=== PATIENT | female | born 1980 | race Caucasian/White ===

== ENCOUNTER 2016-05-10 12:09 | Emergency (ER) | payer BC ==
[2016-05-10 12:46] VITALS: BP 112/72
--- NOTE | 2016-05-10 12:59 | UC ---
Skin Complaint HPI - HPI Summary HPI Summary: [facility] - History of Current Complaint Chief Complaint: UCLowerExtremity Time Seen by Provider: 05/10/16 12:44 Stated Complaint: PAINFUL TOE Hx Obtained From: Patient Hx Last Menstrual Period: 05/01/16 ?: No Onset/Duration: Sudden Onset, Lasting Days Skin Exposure Onset/Duration: Days Ago Timing: Constant Onset Severity: Mild Current Severity: None Location: Discrete - right 4th toe Aggravating: Nothing Alleviating: Nothing Associated Signs & Symptoms: Positive: Negative - Allergy/Home Medications Allergies/Adverse Reactions: Allergies Allergy/AdvReac Type Severity Reaction Status Date / Time No Known Allergies Allergy Verified 02/05/13 08:35 Home Medications: Home Medications Cholecalciferol [Vitamin D] 1,000 unit PO 05/10/16 [History] Review of Systems Constitutional: Negative Skin: Negative Eyes: Negative ENT: Negative Respiratory: Negative Cardiovascular: Negative Gastrointestinal: Negative Genitourinary: Negative Motor: Negative Neurovascular: Negative Musculoskeletal: Other: - irritation in toe sometimes Neurological: Negative Psychological: Negative All Other Systems Reviewed And Are Negative: Yes PMH/Surg Hx/FS Hx/Imm Hx Previously Healthy: Yes Endocrine History Of: Denies: Diabetes, Thyroid Disease Cardiovascular History Of: Denies: Cardiac Disorders, Hypertension, Pacemaker/ICD Respiratory History Of: Denies: COPD, Asthma GI/ History Of: Denies: Ulcer - Surgical History Surgical History: Yes Surgery Procedure, Year, and Place: WISDOM TEETH REMOVAL - Family History Known Family History: Negative: Cardiac Disease, Hypertension - Social History Alcohol Use: None Substance Use Type: None Smoking Status (MU): Never Smoked Tobacco Have You Smoked in the Last Year: No - Immunization History Most Recent Influenza Vaccination: 11/25/14 Most Recent Tetanus Shot: 11/21/14 Most Recent Pneumonia Vaccination: na Physical Exam Triage Information Reviewed: Yes Appearance: Well-Nourished, Ill-Appearing, Pain Distress Vital Signs: Initial Vital Signs Temp 98.5 F 05/10/16 12:41 Pulse 85 05/10/16 12:41 Resp 18 05/10/16 12:41 BP 112/72 05/10/16 12:41 Pulse Ox 98 05/10/16 12:41 Vital Signs Reviewed: Yes Eye Exam: Normal Eyes: Positive: Conjunctiva Clear ENT Exam: Normal ENT: Positive: Normal ENT inspection, Hearing grossly normal, Pharynx normal, TMs normal Dental Exam: Normal Neck exam: Normal Neck: Positive: Supple, Nontender, No Lymphadenopathy Respiratory Exam: Normal Respiratory: Positive: Chest non-tender, Lungs clear, Normal breath sounds Cardiovascular Exam: Normal Cardiovascular: Positive: RRR, No Murmur, Pulses Normal Abdominal Exam: Normal Abdomen Description: Positive: Nontender, No Organomegaly, Soft Bowel Sounds: Positive: Present Musculoskeletal Exam: Normal Musculoskeletal: Positive: Strength Intact, ROM Intact, No Edema Neurological Exam: Normal Neurological: Positive: Alert, Muscle Tone Normal Psychological Exam: Normal Skin: Positive: Other - no redness or FB noted, skin is intack, no visible abnormality, patient denies pain at this time. Course/Dx - Course Course Of Treatment: hx obtained, exam performed, educated on foot soaks - Differential Diagnoses - Skin Complaint Differential Diagnoses: Abscess, Cellulitis, Contact Dermatitis, Urticaria - Diagnoses Provider Diagnoses: toe pain Discharge - Discharge Plan Condition: Stable Disposition: HOME Patient Education Materials: Soft Tissue Foreign Body (ED) Referrals: Dora Martin MD [Primary Care Provider] - Additional Instructions: COntinue to soak your foot in epsom salts 2-3 times a day. FOllow up with any increase in redness, swelling or fever.
== END 2016-05-10 12:59 | disposition home or self-care (01) ==
LOC: UCEAST 12:09
DX: M79.674 Pain in right toe(s) (principal)
CPT/HCPCS: 99211; G0463

== ENCOUNTER 2017-02-08 10:34 | Emergency (ER) | payer BC ==
[2017-02-08 10:59] VITALS: BP 99/67
--- NOTE | 2017-02-08 11:50 | UC ---
Florencia Ahmadi Nilda, scribed for Janie Briceno MD on 02/08/17 at 1133 . Throat Pain/Nasal Mati HPI - HPI Summary HPI Summary: This patient is a 36 year old F presenting to [facility] with a chief complaint of constant sore throat (burning) since yesterday. The patient rates the pain 5/10 in severity. Symptoms aggravated by nothing. Symptoms alleviated by Tylenol Cold /Flu last taken this morning. Patient reports post nasal drip symptoms, mild nausea, cough (2 days ago), rhinorrhea (1 week ago, resolved), and chills. Patient denies ear pain, rash, and fever. Pt states she's been drinking and eating well. Flu vaccine UTD. NKDA. Pt is on BCPs but is on no other medications. No smoke exposure, but occasional alcohol. Pt states 2 weeks ago she felt similar symptoms and was treated with abx (Amoxicillin, BID) with no relief. She states she did not change her toothbrush following her abx treatment. Recent sick contact with child with similar symptoms. Patients medication's reviewed. - History of Current Complaint Chief Complaint: UCRespiratory Stated Complaint: SORE THROAT Hx Obtained From: Patient Hx Last Menstrual Period: 05/01/16 Onset/Duration: Sudden Onset, Lasting Days - yesterday, Still Present Severity: Moderate Pain Intensity: 5 Pain Scale Used: 0-10 Numeric Cough: Nonproductive Associated Signs & Symptoms: Positive: Other - sore throat, post nasal drip symptoms, mild nausea, cough (2 days ago), rhinorrhea (1 week ago, resolved), and chills. Patient denies ear pain, rash, and fever. - Allergies/Home Medications Allergies/Adverse Reactions: Allergies Allergy/AdvReac Type Severity Reaction Status Date / Time No Known Allergies Allergy Verified 02/08/17 10:56 Home Medications: Home Medications Oral Control 02/08/17 [History] Eypftucktenwl-Ab-CL W/ APAP [Tylenol Cold & Flu Severe 1-88-291-325 mg] [History] PMH/Surg Hx/FS Hx/Imm Hx Previously Healthy: Yes - Surgical History Surgical History: Yes Surgery Procedure, Year, and Place: WISDOM TEETH REMOVAL - Family History Known Family History: Negative: Cardiac Disease, Hypertension - Social History Alcohol Use: None Substance Use Type: None Smoking Status (MU): Never Smoked Tobacco Have You Smoked in the Last Year: No - Immunization History Most Recent Influenza Vaccination: 11/25/14 Most Recent Tetanus Shot: 11/21/14 Most Recent Pneumonia Vaccination: na Review of Systems Constitutional: Chills, Other - negative fever Skin: Other - negative rash ENT: Sore Throat, Nasal Discharge - last week, resolved, Other - post nasal drip symptoms; negative ear pain Respiratory: Cough Gastrointestinal: Nausea - mild All Other Systems Reviewed And Are Negative: Yes Physical Exam Triage Information Reviewed: Yes Appearance: Well-Appearing, No Pain Distress, Well-Nourished Vital Signs: Initial Vital Signs Temp 98.2 F 02/08/17 10:57 Pulse 78 02/08/17 10:57 Resp 16 02/08/17 10:57 BP 99/67 02/08/17 10:57 Pulse Ox 100 02/08/17 10:57 Vital Signs Reviewed: Yes Eye Exam: Normal Eyes: Positive: Conjunctiva Clear ENT Exam: Normal ENT: Positive: Normal ENT inspection, Hearing grossly normal, Nasal congestion, Other - scan fluuid b/l TM + PND no erythema, exudate uvula midline Dental Exam: Normal Neck exam: Normal Neck: Positive: Supple, Nontender, No Lymphadenopathy Respiratory Exam: Normal Respiratory: Positive: Chest non-tender, Lungs clear, Normal breath sounds, No respiratory distress, No accessory muscle use Cardiovascular Exam: Normal Cardiovascular: Positive: RRR, No Murmur, Pulses Normal Abdominal Exam: Normal Abdomen Description: Positive: Nontender, No Organomegaly Bowel Sounds: Positive: Present Musculoskeletal Exam: Normal Neurological Exam: Normal Neurological: Positive: Alert Psychological Exam: Normal Skin Exam: Normal Throat Pain/Nasal Course/Dx - Course Course Of Treatment: pt with sore throat ad PND. Pt well appearing with stable VS. Pt with + PND and mild ear fluid on exam. Will rx nasal spray. hydrate. secretion precautions. strep neg - Differential Dx/Diagnosis Provider Diagnoses: URI Discharge - Discharge Plan Condition: Stable Disposition: HOME Prescriptions: Fluticasone NASAL SPRAY 50MCG* [Flonase NASAL SPRAY 50MCG*] 2 spray BOTH NARES DAILY #1 btl Patient Education Materials: Upper Respiratory Infection (ED) Forms: *Work Release Referrals: No Primary Care Phys,NOPCP [Primary Care Provider] - Additional Instructions: - Stay well hydrated. Drink plenty of non-alcoholic,non-caffinated beverages - use nasal spray once daily as prescribed - okay to take over the counter decongestant or cough/cold medications - These infections are spread by oral secretions - do not share eating or drinking utensils until you symptoms are resolved. Clean items that may get your secretions such as cell phones, ipads, computer mouse, television remote. Once you start to feel better, change your pillowcase and your toothbrush - Contact your doctor or return with questions or concerns The documentation as recorded by the Florencia contreras Nilda accurately reflects the service I personally performed and the decisions made by me, Janie Briceno MD.
== END 2017-02-08 12:01 | disposition home or self-care (01) ==
LOC: UCEAST 10:34
DX: J06.9 Acute upper respiratory infection, unspecified (principal)
CPT/HCPCS: 87651; 99212; G0463

== ENCOUNTER 2017-09-14 16:04 | Emergency (ER) | payer BC ==
[2017-09-14 16:11] VITALS: BP 118/79
--- NOTE | 2017-09-14 16:28 | ED ---
Respiratory - HPI Summary HPI Summary: 37-year-old female presents with productive cough for the past week. She states that she developed a sore throat yesterday. She denies any fevers. Denies any shortness breath or chest pain. She denies any headache. She denies any nausea vomiting. Her daughter is sick with a runny nose. She denies any sinus congestion. She has been taking nyquil with minimal relief. She is not a smoker. - History of Current Complaint Chief Complaint: UCRespiratory Stated Complaint: SORE THROAT Time Seen by Provider: 09/14/17 16:18 Pain Intensity: 6 - Allergy/Home Medications Allergies/Adverse Reactions: Allergies Allergy/AdvReac Type Severity Reaction Status Date / Time No Known Allergies Allergy Verified 09/14/17 16:11 PMH/Surg Hx/FS Hx/Imm Hx Endocrine/Hematology History: Denies: Hx Diabetes, Hx Thyroid Disease Cardiovascular History: Denies: Hx Hypertension, Hx Pacemaker/ICD Respiratory History: Denies: Hx Asthma, Hx Chronic Obstructive Pulmonary Disease (COPD) GI History: Denies: Hx Ulcer Musculoskeletal History: Denies: Hx Scoliosis Sensory History: Denies: Hx Hearing Aid Neurological History: Reports: Hx Headaches Psychiatric History: Denies: Hx Panic Disorder - Surgical History Surgery Procedure, Year, and Place: WISDOM TEETH REMOVAL Infectious Disease History: No Infectious Disease History: Denies: Hx Hepatitis, Hx Human Immunodeficiency Virus (HIV), History Other Infectious Disease, Traveled Outside the in Last 30 Days - Family History Known Family History: Negative: Cardiac Disease, Hypertension - Social History Alcohol Use: None Substance Use Type: Reports: None Smoking Status (MU): Never Smoked Tobacco Have You Smoked in the Last Year: No Review of Systems Negative: Fever Positive: Sore Throat Negative: Chest Pain Positive: Cough. Negative: Shortness Of Breath All Other Systems Reviewed And Are Negative: Yes Physical Exam Triage Information Reviewed: Yes Vital Signs On Initial Exam: Initial Vitals Temp Pulse Resp BP Pulse Ox 98.9 F 74 16 118/79 100 09/14/17 16:07 09/14/17 16:07 09/14/17 16:07 09/14/17 16:07 09/14/17 16:07 Vital Signs Reviewed: Yes Appearance: Positive: Well-Appearing Skin: Positive: Warm, Dry Head/Face: Positive: Normal Head/Face Inspection Eyes: Positive: Normal, EOMI, MELISSA, Conjunctiva Clear ENT: Positive: Normal ENT inspection, Pharyngeal erythema, TMs normal, Uvula midline, Other - soft palate symmetric. Negative: Tonsillar swelling, Tonsillar exudate, Trismus, Muffled voice Neck: Positive: Supple, Nontender, No Lymphadenopathy Respiratory/Lung Sounds: Positive: Clear to Auscultation, Breath Sounds Present Cardiovascular: Positive: Normal, RRR Musculoskeletal: Positive: Normal Neurological: Positive: Normal Psychiatric: Positive: Normal Diagnostics - Vital Signs Vital Signs Temp Pulse Resp BP Pulse Ox 09/14/17 16:07 98.9 F 74 16 118/79 100 - Laboratory Lab Statement: Any lab studies that have been ordered have been reviewed, and results considered in the medical decision making process. Disposition - Course Course Of Treatment: 37-year-old female presents with productive cough for the past week. She states that she developed a sore throat yesterday. She denies any fevers. Denies any shortness breath or chest pain. She denies any headache. She denies any nausea vomiting. Her daughter is sick with a runny nose. She denies any sinus congestion. She has been taking nyquil with minimal relief. She is not a smoker. on exam pharynx erythematous. Uvula midline. Soft palate symmetric. Tonsils no edema. Centor rules does not need any strep swab. Lungs clear to auscultation. Negative egophony. discussed options with patient and we'll place on Tessalon. Patient understands agrees with plan. - Differential Dx - Cardiopulmonary Differential Diagnoses - Cardiopulmonary: Bronchitis, Lower Resp Infection, Other - pharyngitis - Diagnoses Provider Diagnoses: Upper respiratory infection Discharge - Sign-Out/Discharge Documenting (check all that apply): Patient Departure - Discharge Plan Condition: Good Disposition: HOME Prescriptions: Benzonatate CAP* [Tessalon 100 MG CAP*] 100 mg PO TID PRN #21 cap PRN Reason: Cough Patient Education Materials: Upper Respiratory Infection (ED) Referrals: Dora Martin MD [Primary Care Provider] - Additional Instructions: Use Tessalon three times a day for cough Use humidifier or place warm bowls of water around the room for cough Take Tylenol or ibuprofen every 6 hours as needed for pain Follow up with primary care physician in 5 days Return to ED if develop any new or worsening symptoms - Billing Disposition and Condition Condition: GOOD Disposition: Home
== END 2017-09-14 16:30 | disposition home or self-care (01) ==
LOC: UCEAST 16:04
DX: J06.9 Acute upper respiratory infection, unspecified (principal)
CPT/HCPCS: 99212; G0463

== ENCOUNTER 2018-05-03 07:48 | Emergency (ER) | payer BC ==
[2018-05-03 08:00] VITALS: BP 112/72
--- NOTE | 2018-05-03 08:02 | UC ---
Throat Pain/Nasal Mati HPI - HPI Summary HPI Summary: Patient Chief Complaint: Five-day history of moderate left sinus discomfort. Some discomfort on the right. Postnasal drip. MD note: vital signs stable. Vital signs beyond normal range reviewed. Nurses Note Reviewed. Visit History Reviewed. Noncontributory to present complaint. Patient does have a history of headaches and numbness. Medications & Allergies Reviewed. Patient has no known allergies. She is not on any antihypertensive medication. - History of Current Complaint Stated Complaint: SINUS Time Seen by Provider: 05/03/18 07:59 Hx Obtained From: Patient Hx Last Menstrual Period: 3 weeks ago Pain Intensity: 7 - Allergies/Home Medications Allergies/Adverse Reactions: Allergies Allergy/AdvReac Type Severity Reaction Status Date / Time No Known Allergies Allergy Verified 05/03/18 08:00 Home Medications: Home Medications Ibuprofen [Advil] 200 mg PO ONCE PRN 05/03/18 [History Confirmed 05/03/18] L.acidoph,Paracasei, B.lactis [Probiotic] 1 each PO ONCE PRN 05/03/18 [History Confirmed 05/03/18] Oxymetazoline 0.05% NASAL SPR* [Afrin 0.05% NASAL SPRAY*] 1 spray NASAL Q12H PRN 05/03/18 [History Confirmed 05/03/18] Phenylephrine/Dm/Acetaminop/GG [Tylenol Cold-Flu Severe Caplet] 1 each PO ONCE PRN 05/03/18 [History Confirmed 05/03/18] Trinessa Control 1 tab PO DAILY 05/03/18 [History Confirmed 05/03/18] PMH/Surg Hx/FS Hx/Imm Hx - Additional Past Medical History Additional PMH: PMH reviewed. PATIENT DENIES significant past medical history. Family History: Positive history of: -CANCER -Denies hypertension, heart disease, stroke, diabetes. SOCIAL HISTORY: Employment: [employer] Family Environment: Lives with family Habits: Nonsmoker Previously Healthy: Yes - Surgical History Surgical History: Yes Surgery Procedure, Year, and Place: WISDOM TEETH REMOVAL - Family History Known Family History: Negative: Cardiac Disease, Hypertension - Social History Alcohol Use: None Substance Use Type: None Smoking Status (MU): Never Smoked Tobacco Have You Smoked in the Last Year: No - Immunization History Most Recent Influenza Vaccination: 11/25/14 Most Recent Tetanus Shot: 11/21/14 Most Recent Pneumonia Vaccination: na Review of Systems All Other Systems Reviewed And Are Negative: Yes Constitutional: Negative: Fever ENT: Positive: Sinus Congestion, Sinus Pain/Tenderness - On the left side. Respiratory: Positive: Negative Cardiovascular: Positive: Negative Gastrointestinal: Positive: Negative Is Patient Immunocompromised?: No - Comments Additional Review of Systems Comments: A 12 point review of systems was completed and was significantly positive for: Left Sinus pain . The remainder of the review was negative except as stated above in the ROS or HPI. Physical Exam - Summary Physical Exam Summary: Appearance: The patient is well-appearing, is in no pain or distress, and is well-nourished. Eyes: Conjunctiva are clear. Pupils are equal and reactive to light and accommodation. Extra ocular muscle movement is intact. ENT: The hearing is grossly normal, the pharynx is normal, and the TMs are normal. There is no muffled or hoarse voice. No stridor. Neck: The neck is supple and there is no lymphadenopathy. There is mild tenderness to palpation over the left sinus. There is no significant nasal drainage. Respiratory: The chest is nontender to palpation and without crepitus. The lungs are clear, there are normal breath sounds, and there is no respiratory distress. No wheezes, rales or rhonchi. Cardiovascular: Heart sounds reveal a regular rate and rhythm. There are no clicks, rubs or murmurs. There are no carotid bruits or thrills. Circulation is grossly intact. Abdomen: The abdomen is soft and nontender. There is no organomegaly. Bowel sounds are present and within normal limits. No point tenderness at McBurneys point. Musculoskeletal: Strength is intact. The patient moves all extremities. Neurological: The patient is alert. Motor and sensory are examination grossly intact. Speech is normal. Psychological: The patient displays age appropriate behavior Skin: Negative for rashes. Triage Information Reviewed: Yes Vital Signs: Initial Vital Signs Temp 98.3 F 05/03/18 07:55 Pulse 91 05/03/18 07:55 Resp 18 05/03/18 07:55 BP 112/72 05/03/18 07:55 Pulse Ox 99 05/03/18 07:55 Throat Pain/Nasal Course/Dx - Course Course Of Treatment: Five-day history of moderate left sinus discomfort. Some discomfort on the right. Postnasal drip. Physical exam shows mild tenderness to palpation over the left sinus. We discussed the probability that this is viral. We decided on a course of treatment that would involve me giving amoxicillin and the patient waiting for 2 days and taking the medication if the pain increased or if she developed a temperature. The patient will use warm moist soaks to the area and various honr-nko-ofbrand medications. She will follow-up if she needs to take the antibiotic or if she notes increasing pain or temperature. My diagnosis is sinus congestion, possible sinusitis on the left. I've written her a prescription for 5 days of amoxicillin. MEDICATIONS REVIEWED: Medications have been included in the original chart and reviewed. HYPERTENSION STATUS REVIEWED. - Differential Dx/Diagnosis Differential Diagnosis/HQI/PQRI: Sinusitis, URI Provider Diagnosis: Sinusitis Discharge - Sign-Out/Discharge Documenting (check all that apply): Patient Departure All imaging exams completed and their final reports reviewed: No Studies - Discharge Plan Condition: Stable Disposition: HOME Prescriptions: Amoxicillin PO (*) [Amoxicillin 875 MG (*)] 875 mg PO BID #10 tab MDD 2 Patient Education Materials: Analgesic/Decongestant (By mouth), Guaifenesin/ Phenylephrine (By mouth), Sinusitis (ED) Referrals: Dora Martin MD [Primary Care Provider] - Additional Instructions: WE DISCUSSED: PLEASE SEEK CARE AT THE EMERGENCY DEPARTMENT IF SYMPTOMS WORSEN OR IF NEW SYMPTOMS DEVELOP. FOLLOW UP WITH YOUR PRIMARY CARE PHYSICIAN IF CONDITION CONTINUES BEYOND 3 DAYS WITHOUT IMPROVEMENT. We are open from 7 a.m. to 10 p.m. Call us with any questions or concerns. YOUR DIAGNOSIS IS: SINUS CONGESTION, POSSIBLE INFECTION CAUSED BY VIRUS; MAYBE BY BACTERIA YOUR PRESCRIPTION RECOMMENDATION IS: AMOXICILLIN, TWICE A DAY FOR FIVE DAYS, IF PAIN CONTINUES FOR 2 MORE DAYS, OR IF YOU GET INCREASED PAIN OR TEMPERATURE. OTHER INSTRUCTIONS: SEE ATTACHED INSTRUCTIONS. IF YOU NEED TO TAKE THE ANTIBIOTIC, RECHECK WITH US OR YOUR DOCTOR. Any illness causing cough, congestion, sore throat or sinus discomfort can be helped by doing the following: STAND UNDER SHOWER STREAM TO LOOSEN SECRETIONS. STAY AWAY FROM ANY SMOKE OR IRRITANTS. WHAT ELSE CAN HELP RELIEVE YOUR SYMPTOMS: GENERAL TYPES OF MEDICINE THAT MAY HELP DECONGESTANTS: helps relieve stuffiness and clears sinuses. Pseudoephedrine ( Sudafed or generic) is effective but you need to ask the pharmacist for it because it may be kept behind the counter. ANTIHISTAMINES: are NOT helpful in many colds and flus because they can worsen sore throat, dry eyes and mouth and cause drowsiness. Examples are diphenhydramine, doxylamine and chlorpheniramine. They can help dry you out if you are having profuse, clear drainage from the nose. EXPECTORANTS: helps thin mucous in the nose and chest, making it easier to clear the fluid out. Expectorants are in most combination cough/cold remedies and should be taken with plenty of water. Guaifenesin is the most common expectorant and it comes in pill or liquid form. Mucinex is an extended release form of guaifenesin. COUGH SUPPRESANT: reduces the body's cough reflex. Dextromethorphan is in over the counter products. Rarely, narcotics such as codeine or hydrocodone are used to suppress cough. SPECIFIC MEDICATIONS: Some of these may come in combination. In general, they all contain the same or similar active ingredients. The most important goal is to liquefy all the phlegm and get it out of your head and chest: The following medicines (you can buy them without prescription) may help: To help with cough: DEXTROMETHORPHAN (Vicks, Robitussin, Nyquil and other brands) To help break up phlegm: GUAIFENESIN (Mucinex, Robitussin, other brands) To help clear congestion: PSEUDOEPHEDRINE (Sudafed, Dimetapp, other brands) TRY TO CLEAR NOSE: AFRIN NASAL SPRAY: 2-3 SPRAYS PER NOSTRIL, TWICE A DAY FOR TWO DAYS ONLY. USEFUL WAYS TO FEEL BETTER WITHOUT MEDICATIONS: STAND UNDER SHOWER STREAM TO LOOSEN SECRETIONS. USE A VAPORIZOR. STAY AWAY FROM ANY SMOKE OR IRRITANTS. USE SALINE NASAL SPRAY TO KEEP FLOW OF MUCOUS FROM NOSTRILS AND SINUSES. CONSIDER USING NETI POT TO HELP WITH ALLERGIES AND CONGESTION IN THE NOSE. USE THIS THREE TIMES A WEEK. YOU CAN GET THIS AT [employer] IN [place] OR VARIOUS DRUGSTORES. DRINK LOTS OF WARM FLUIDS USEFUL HOME REMEDIES: WARM WATER GARGLES, WITH TSP OF SALT PER 8 OUNCES OF WATER, GARGLE FOR A FEW SECONDS AND SPIT OUT; GARGLE AND SPIT OUT; EVERY THREE HOURS. AND/OR: WARM WATER OR TEA, HONEY AND LEMON; 2-3 CUPS A DAY. FOR SORE THROAT: KEEP THROAT MOIST WITH LOZENGES; TEA AND HONEY. USE WARM WATER GARGLES 3-4 TIMES A DAY. FOLLOW UP: RE-CHECK IN 1O DAYS, NEEDED, IF YOU ARE NOT IMPROVING. RETURN HERE OR SEE YOUR PHYSICIAN. RE-CHECK SOONER IF INCREASED PAIN OR TEMPERATURE. - Billing Disposition and Condition Condition: STABLE Disposition: Home
== END 2018-05-03 08:30 | disposition home or self-care (01) ==
LOC: UCEAST 07:48
DX: J32.9 Chronic sinusitis, unspecified (principal)
CPT/HCPCS: 99212; G0463

== ENCOUNTER 2019-01-01 17:01 | Emergency (ER) | payer BC ==
--- NOTE | 2019-01-01 17:11 | UC ---
Throat Pain/Nasal Mati HPI - HPI Summary HPI Summary: 38 yo female presents with sore throat. She tells me that for the last week she has had a sore throat. Over the last 3 days has noticed swollen lymph nodes. She is eating, drinking, and tolerating po well. Denies fever, chills, sinus symptoms, cough, rash. - History of Current Complaint Stated Complaint: SORE THROAT Time Seen by Provider: 01/01/19 17:10 Hx Obtained From: Patient Hx Last Menstrual Period: 3 weeks ago Onset/Duration: Gradual Onset Severity: Mild Pain Intensity: 3 Pain Scale Used: 0-10 Numeric - Allergies/Home Medications Allergies/Adverse Reactions: Allergies Allergy/AdvReac Type Severity Reaction Status Date / Time No Known Allergies Allergy Verified 05/03/18 08:00 PMH/Surg Hx/FS Hx/Imm Hx - Additional Past Medical History Additional PMH: None - Surgical History Surgical History: Yes Surgery Procedure, Year, and Place: WISDOM TEETH REMOVAL - Family History Known Family History: Negative: Cardiac Disease, Hypertension - Social History Occupation: Employed Full-time Lives: With Family Alcohol Use: None Substance Use Type: None Smoking Status (MU): Never Smoked Tobacco Have You Smoked in the Last Year: No - Immunization History Most Recent Influenza Vaccination: 11/25/14 Most Recent Tetanus Shot: 11/21/14 Most Recent Pneumonia Vaccination: na Review of Systems All Other Systems Reviewed And Are Negative: No Constitutional: Positive: Negative Skin: Positive: Negative Eyes: Positive: Negative ENT: Positive: Sore Throat Respiratory: Positive: Negative Cardiovascular: Positive: Negative Gastrointestinal: Positive: Negative Neurological: Positive: Negative Psychological: Positive: Negative Physical Exam - Summary Physical Exam Summary: GENERAL: NAD. WDWN. No pain distress. SKIN: No rashes, sores, lesions, or open wounds. HEENT: Head: AT/NC Eyes: EOM intact. Conjunctiva clear without inflammation or discharge. Ears: Hearing grossly normal. TMs intact, no bulging, erythema, or edema. Nose: Nasal mucosa pink and moist. NTTP maxillary and frontal sinus. Throat: Posterior oropharynx without exudates, erythema, or tonsillar enlargement. Uvula midline. NECK: Supple. Anterior cervical shotty LAD. NTTP CHEST: CTAB. No accessory muscle use. Breathing comfortably and in no distress. CV: RRR. Pulses intact. Cap refill <2seconds NEURO: Alert. PSYCH: Age appropriate behavior. Triage Information Reviewed: Yes Vital Signs: Vital Signs: Temp Pulse Resp BP Pulse Ox 97.8 F 89 16 115/73 100 01/01/19 17:17 01/01/19 17:17 01/01/19 17:17 01/01/19 17:17 01/01/19 17:17 Laboratory Tests 01/01/19 17:33 Group A Strep Rapid Positive A Vital Signs Reviewed: Yes Throat Pain/Nasal Course/Dx - Course Course Of Treatment: POC strep positive rx for amoxicillin - Differential Dx/Diagnosis Provider Diagnosis: Strep throat Discharge ED - Sign-Out/Discharge Documenting (check all that apply): Patient Departure All imaging exams completed and their final reports reviewed: No Studies - Discharge Plan Condition: Stable Disposition: HOME Prescriptions: Amoxicillin PO (*) [Amoxicillin 500 MG CAP*] 500 mg PO Q12H #20 cap Patient Education Materials: Strep Throat (ED) Forms: *Work Release Referrals: Dora Martin MD [Primary Care Provider] - Additional Instructions: If you develop a fever, shortness of breath, chest pain, new or worsening symptoms - please call your PCP or go to the ED immediately. - Billing Disposition and Condition Condition: STABLE Disposition: Home
[2019-01-01 17:23] VITALS: BP 115/73
[2019-01-01] MEDS ORDERED: Amoxicillin PO (*) 500 MG CAP PO ONE (17:43)
== END 2019-01-01 18:00 | disposition home or self-care (01) ==
LOC: UCEAST 17:01
DX: J02.0 Streptococcal pharyngitis (principal)
CPT/HCPCS: 87651; 99212; A9270-GY; G0463

== ENCOUNTER 2021-06-04 01:20 | Inpatient (IN) ==
[2021-06-04] MEDS ORDERED: Buffered Lidocaine 1% SYRIN 1 ml INTRADERM ONE (02:07)
[2021-06-04] MEDS ORDERED: Lactated Ringers 1000 ml BAG 1,000 ML IV ONE (02:07)
[2021-06-04] MEDS ORDERED: Penicillin G Potassium IV 5,000,000 UNITS in NS 0.9% 100 ml BAG 100 ML IVPB ONE (02:30)
[2021-06-04 02:34] LABS: ABS Monocytes 0.6 10^3/ul (0-0.8); ABS Neutrophils 5.5 10^3/ul (1.5-7.7); Eosinophil % 0.4 %; Hematocrit 36 % (35-47); Hemoglobin 12.5 g/dL (12.0-16.0); Lymphocyte % 24.4 %; Mean Corpuscular HGB Conc 35 g/dL (31-36); Mean Corpuscular Hemoglobin 33 pg (27-31); Mean Corpuscular Volume 94 fL (80-97); Mean Platelet Volume 8.6 fL (7.4-10.4); Platelet Count 261 10^3/uL (150-450); Red Blood Count 3.84 10^6 /uL (3.70-4.87); Red Cell Distribution Width 13 % (10-15); White Blood Count 8.1 10^3/uL (3.5-10.8)
[2021-06-04 02:55] LABS: Urine Benzodiazepine Screen None Detected (None Detect); Urine Cannabinoids Screen None Detected (None Detect); Urine Opiates Screen None Detected (None Detect)
[2021-06-04] MEDS ORDERED: Lactated Ringers 1000 ml BAG 1,000 ML IV SCH ×2 (03:00→12:00)
[2021-06-04] MEDS: Penicillin G Potassium IV 3,000,000 UNITS in NS 0.9% 100 ml BAG 100 ML IVPB SCH ×2 (06:30→12:10)
[2021-06-04] MEDS ORDERED: Oxytocin in LR 20 UNITS/1,000 ML BAG IVPB ONE (09:18)
[2021-06-04] MEDS ORDERED: Oxytocin in LR 20 UNITS/1,000 ML BAG IVPB SCH ×2 (10:00→12:00)
[2021-06-04] MEDS: Witch Hazel PAD JAR TOPICAL PRN ×2 (12:37→20:24)
[2021-06-04] MEDS ORDERED: Lidocaine 1% VIAL 10 MG/ML VIAL ONE (15:57)
[2021-06-04] MEDS: Dibucaine 1% OINT 28.35 GM TUBE PR PRN (20:24)
[2021-06-05 07:27] LABS: ABS Lymphocytes 1.6 10^3/ul (1.0-4.8); ABS Monocytes 0.6 10^3/ul (0-0.8); ABS Neutrophils 6.8 10^3/ul (1.5-7.7); Eosinophil % 0.2 %; Hematocrit 31 % (35-47); Hemoglobin 10.9 g/dL (12.0-16.0); Lymphocyte % 18.1 %; Mean Corpuscular HGB Conc 35 g/dL (31-36); Mean Corpuscular Hemoglobin 33 pg (27-31); Mean Corpuscular Volume 94 fL (80-97); Mean Platelet Volume 8.1 fL (7.4-10.4); Platelet Count 220 10^3/uL (150-450); Red Blood Count 3.32 10^6 /uL (3.70-4.87); Red Cell Distribution Width 13 % (10-15); White Blood Count 9.1 10^3/uL (3.5-10.8)
[2021-06-05] MEDS: Penicillin G Potassium IV 3,000,000 UNITS in NS 0.9% 100 ml BAG 100 ML IVPB SCH (08:52)
[2021-06-06 07:59] VITALS: BP 94/58
[2021-06-06] MEDS: Dibucaine 1% OINT 28.35 GM TUBE PR PRN (12:26)
[2021-06-06] MEDS: Witch Hazel PAD JAR TOPICAL PRN (12:26)
== END 2021-06-06 13:10 | disposition home or self-care (01) | DRG 560 ==
LOC: MCHOBOUT 01:20 → MCHOB 02:01
PROVIDERS: ADMIT Midwife; ATTEND Midwife